=== PATIENT | female | born 1995 | race Caucasian/White ===

== ENCOUNTER → 2021-11-27 | Outpatient (CLI) | payer OTHER ==
--- NOTE | 2021-11-27 16:11 | KCIC ---
EXAM: Pelvis radiograph 11/27/2021 2:20 PM CLINICAL INDICATION: Infertility COMPARISON: None TECHNIQUE: AP view of the pelvis. FINDINGS: No acute fracture. Alignment is normal. Hip joint spaces are maintained. The visualized po rtion of the sacroiliac joints and pubic symphysis are normal. IMPRESSION: Normal pelvis radiograph. Electronically signed by: Yumi Atwood MD (11/27/2021 4:08 PM) [id number]
== END ==
LOC: KCIC 10:19
PROVIDERS: ATTEND Chiropractor Nutrition
DX: N97.2 Female infertility of uterine origin (principal)
CPT/HCPCS: 74740